=== PATIENT | female | born 1995 | race Hispanic/Latino ===

== ENCOUNTER 2021-12-16 22:22 | Emergency (ER) | payer SELFPAY ==
[2021-12-16 23:29] LABS: #Monocytes 0.7 10x3/uL (0.0-1.1); #Neutrophils 12.5 10x3/uL (1.5-8.4); %Basophils 0.2 % (0.0-2.0); %Eosinophils 0.1 % (0.0-6.0); %Lymphocytes 14.4 % (18.0-47.0); %Monocytes 4.5 % (0.0-10.0); %Neutrophils 80.5 % (40.0-75.0); Hemoglobin 13.3 g/dL (12.0-15.5); Mean Corpuscular HGB CONC 34.7 g/dL (32.0-36.0); Mean Corpuscular Hemoglobin 29.6 pg (27.0-33.0); Mean Corpuscular Volume 85.3 fl (81.6-98.3); Mean Platelet Volume 12.8 fl (7.4-10.4); Platelet Count 348 10x3/uL (150-450); RBC Distribution Width 13.1 % (11.5-14.5); Red Blood Cell (RBC) Count 4.49 10x6/uL (3.90-5.03); White Blood Cell (WBC) Count 15.5 10x3/uL (3.5-10.5)
[2021-12-16] MEDS ORDERED: Lorazepam 2 MG/ML VIAL ONE (23:30)
[2021-12-16 23:52] LABS: ALT (SGPT) 20 U/L (8-55); AST (SGOT) 17 U/L (5-34); Albumin 4.5 g/dL (3.5-5.0); Alkaline Phosphatase 75 U/L (40-110); Anion Gap 20 mmol/L (10-20); BUN (Urea Nitrogen) 10 mg/dL (7.0-18.7); Bilirubin, Total 0.7 mg/dL (0.2-1.2); CK (CPK) 55 U/L (29-168); Calc. Creatinine Clearance 0 mL/min (70-130); Calcium 9.6 mg/dL (7.8-10.44); Carbon Dioxide 16 mmol/L (22-29); Chloride 107 mmol/L (98-107); Estimated GFR 121; Globulin 3.5 g/dL (2.4-3.5); Glucose 120 mg/dL (70-105); Potassium 3.9 mmol/L (3.5-5.1); Sodium 139 mmol/L (136-145)
[2021-12-17] MEDS ORDERED: methylPREDNISolone Sod Succ/PF 125 MG/2 ML VIAL ONE (01:18)
[2021-12-17] MEDS ORDERED: Ketorolac Tromethamine 30 MG/ML VIAL ONE (01:18)
== END 2021-12-17 01:30 | disposition home or self-care (01) ==
LOC: CSHERS 22:22
DX: F41.9 Anxiety disorder, unspecified (principal); J20.8 Acute bronchitis due to other specified organisms
CPT/HCPCS: 71045; 80053; 82550; 84484; 85025; 87804; 93005; 96361; 96374; 96375; J1885; J2060; J2930

== ENCOUNTER 2022-12-20 18:14 | Emergency (ER) | payer BC, SELFPAY ==
[2022-12-20] MEDS ORDERED: Acetaminophen 500 MG TAB ONE (19:16)
== END 2022-12-20 19:40 | disposition home or self-care (01) ==
LOC: CSHERS 18:14
DX: M79.672 Pain in left foot (principal); F17.210 Nicotine dependence, cigarettes, uncomplicated